=== PATIENT | female | born 1980 | race Caucasian/White ===

== ENCOUNTER → 2019-08-23 09:25 | Outpatient (CLI) | payer BC ==
[2014-06-12 06:23] VITALS: BMI 37.3
[~2019-08-23 09:25] MED LIST: ACETAMINOPHEN500 M1 PO; DEMEROL50 MG PO; IBUPROFEN600 MG PO; PRENAVITE1 TAB PO; ZPAK PO
[2019-08-23 09:57] LABS: LYMPHOCYTES 44.2 % (15-50); MCH 27.5 pg (26.0-34.0); MCHC 32.4 g/dL (31.0-37.0); MCV 84.9 fL (80.0-100.0); MEAN PLATELET VOLUME 11.2 fL (7.4-10.4); NEUTROPHILS 50.5 % (40-80); PLATELET COUNT 231 10x3/uL (130-400); RBC 4.36 10x6/uL (4.00-5.40); RDW 13.4 % (11.5-14.5); WBC 7.6 10x3/uL (4.8-10.8)
== END | disposition home or self-care (01) ==
LOC: D.LAB 09:25
PROVIDERS: ATTEND Internal Medicine Gastroenterology
DX: R13.10 Dysphagia, unspecified (principal); R11.2 Nausea with vomiting, unspecified; R10.13 Epigastric pain

== ENCOUNTER 2019-08-29 10:46 | Day surgery (SDC) | payer BC ==
[~2019-08-29] VITALS: Ht 172.7 cm; Wt 136.4 kg
[2019-08-29 11:15] LABS: BASOPHILS 0.3 % (0-2); HEMOGLOBIN 11.5 g/dL (12-16); LYMPHOCYTES 44.1 % (15-50); MCH 27.6 pg (26.0-34.0); MCHC 31.9 g/dL (31.0-37.0); MCV 86.5 fL (80.0-100.0); MEAN PLATELET VOLUME 10.7 fL (7.4-10.4); NEUTROPHILS 48.6 % (40-80); PLATELET COUNT 223 10x3/uL (130-400); RBC 4.16 10x6/uL (4.00-5.40); RDW 13.7 % (11.5-14.5); WBC 6.4 10x3/uL (4.8-10.8)
[2019-08-29 11:27] LABS: ANION GAP 11.2 mmol/L (8-16); CALCIUM 8.5 mg/dL (8.5-10.1); CARBON DIOXIDE 26.8 mmol/L (21.0-32.0); CREATININE - SERUM 0.9 mg/dL (0.6-1.3)
[2019-08-29] MEDS ORDERED: PEPCID AC20 MG PO (11:47)
[2019-08-29] MEDS ORDERED: PROTONIX40 MG PO (11:47)
[2019-08-29] MEDS ORDERED: FUROSEMIDE40 MG PO (11:48)
[2019-08-29 11:57] VITALS: BP 116/63; Ht 172.7 cm; Wt 136.4 kg
--- NOTE | 2019-08-29 13:35 | NUR ---
1310-RECD TO ROOM FROM GI. ALERT, RESP WITH EASE. 1315- VOISE IN TO REPORT FINDINGS. 1325-UP TO BATHROOM, VOIDS FREELY. IV D/C. 1335-DISCHARGE INSTRUCTIONS REVIEWED.
--- NOTE | 2019-08-29 14:07 | NUR ---
1400-D/C HOME VIA WHEELCHAIR WITH .
--- NOTE | 2019-08-31 11:26 | OP ---
PATIENT NAME: SHUBHAM HERNANDEZ MEDICAL RECORD: [id number] :76 LOCATION:[facility] ADMISSION DATE: SURGEON: MAUREEN ESQUIVEL DO DATE OF OPERATION: 08/29/2019 PROCEDURE: EGD with biopsies. INDICATIONS FOR PROCEDURE: Dysphagia, GERD, nausea and vomiting, epigastric pain. SCOPE: Olympus video gastroscope. MEDICATIONS: Propofol 300 mg IV per anesthesia. ESTIMATED BLOOD LOSS: Minimal. COMPLICATIONS: None. FINDINGS: Informed consent was given. The patient was made comfortable with the above medication. After reaching an adequate level of sedation by slow IV push, the patient was placed on her left side. The endoscope was advanced under direct visualization through the mouth to the second portion of the duodenum. The entire esophagus appeared normal down to the GE junction. At the GE junction, there were minor changes consistent with LA class A reflux-induced esophagitis. Cold forceps biopsies were taken from the mid esophagus to rule out the presence of eosinophils. The endoscope was advanced beyond the GE junction into the stomach and retroflexed to view the cardia and fundus, which appeared normal. Throughout the distal body of the stomach as well as in the antrum and prepyloric regions, there were some minor changes of erythema and granularity consistent with mild chronic gastritis. Cold forceps biopsies were taken from the antrum and incisura to submit for histopathology and to rule out the presence of H. pylori. The endoscope was advanced beyond the pylorus into the duodenum, which appeared normal to the second portion. Cold forceps biopsies were taken to submit for histopathology. The endoscope was withdrawn from the patient. The patient tolerated the procedure well and there were no complications. IMPRESSION: 1. LA class A reflux-induced esophagitis. 2. Very mild chronic gastritis changes. 3. Otherwise, normal esophagogastroduodenoscopy. PLAN AND RECOMMENDATIONS: 1. Discharge home when recovery parameters are met. 2. Follow up biopsy specimen results. 3. GERD diet and reflux precautions. 4. Continue current proton pump inhibitor of Protonix 40 mg daily. 5. Okay to continue Carafate as needed for breakthrough symptoms, which is how the patient is currently using this medication with relief. 6. Notify the GI clinic if symptoms worsen or fail to improve. 7. Can consider adding an H2 nicole such as Pepcid or famotidine in the evening if continued breakthrough symptoms. 8. If dysphagia persists, consider esophageal manometry. 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
== END 2019-08-29 14:00 | disposition home or self-care (01) ==
LOC: D.OPS 10:46
PROVIDERS: Anesthesiology; ATTEND Internal Medicine Gastroenterology
DX: R13.10 Dysphagia, unspecified (principal); K21.9 Gastro-esophageal reflux disease without esophagitis; R11.2 Nausea with vomiting, unspecified; R10.13 Epigastric pain